=== PATIENT | female | born 1965 | race American Indian/Alaskan Native ===

== ENCOUNTER 2020-05-25 03:05 | Emergency (ER) | payer SELFPAY ==
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
[2020-05-25 03:19] VITALS: BP 154/105
== END 2020-05-25 03:27 ==
LOC: ED 03:05
DX: Z00.8 Encounter for other general examination (principal); Y09 Assault by unspecified means
CPT/HCPCS: 99282